=== PATIENT | female | born 1990 | race Caucasian/White ===

== ENCOUNTER 2017-07-01 10:57 | Observation (INO) | payer OTHER ==
[2017-07-01 11:30] VITALS: BP 111/57; PULSE 102
== END 2017-07-01 12:20 | disposition home or self-care (01) ==
LOC: MED SURG 10:57
PROVIDERS: ADMIT Family Medicine; ATTEND Family Medicine
DX: O09.93 Supervision of high risk pregnancy, unspecified, third trimester (principal)
CPT/HCPCS: G0378

== ENCOUNTER 2017-07-04 14:25 | Observation (INO) | payer OTHER ==
[2017-07-04 15:08] VITALS: BP 111/66; PULSE 107
[2017-07-04 15:40] LABS: Mean Cell Volume 94.2 fl (78-100); Mean Corpuscular Hemoglobin 31.3 pg (26-32); Mean Platelet Volume 9.3 fl (6-9.5); Platelet Count 194 K/mm3 (150-450); Red Blood Count 3.29 M/mm3 (4.1-5.4); Red Cell Distribution Width 13.4 % (11.5-14.0); White Blood Count 10.3 K/mm3 (4.0-10.5)
[2017-07-04 16:04] LABS: ALBUMIN 2.3 g/dL (3.4-5.0); ALKALINE PHOSPHATASE 87 U/L (46-116); ANION GAP 12.8 MEQ/L (5-15); BLOOD UREA NITROGEN 6 mg/dL (9-20); CHLORIDE 106 mEq/L (98-107); Carbon Dioxide 24.2 mEq/L (21-32); Glucose 134 MG/DL (70-110); Potassium 3.4 mEq/L (3.5-5.1); SGOT/AST 15 U/L (15-37); SGPT/ALT 12 U/L (12-78); SODIUM 140 mEq/L (136-145); Total Protein 5.8 gm/dL (6.4-8.2)
--- NOTE | 2017-07-04 16:18 | XRAY ---
Indication: High risk . 2-dimensional OB ultrasound performed. Comparison: May 30, 2017. Again there is a single viable intrauterine in breech presentation. Normal four-chamber heart with heart rate 137 bpm. Normal three-vessel cord and cord insertion. Visualized spine, stomach, kidneys, and bladder are again unremarkable. Main placenta is again posterior with again note of anterior succenturiate placenta. No abnormal retroplacental fluid collection. Cervical length measures 3.9 cm. BPD measures 8.11 cm corresponding to 32 weeks 4 days. HC measures 29.42 cm corresponding to 32 weeks 3 days. AC measures 29.51 cm corresponding to 33 weeks 3 days. FL measures 6.40 cm corresponding to 33 weeks 0 days. JOSE is 13.2 cm. Impression: Again single viable intrauterine with mean gestational age 32 weeks 6 days. Normal progression in .
[2017-07-04 17:42] LABS: Total Cells Counted 100
[2017-07-04 17:43] LABS: ANISOCYTOSIS 1+; Platelet Estimate NORMAL (NORMAL); Polychromasia 1+
== END 2017-07-04 17:50 | disposition home or self-care (01) ==
LOC: OB 14:25
PROVIDERS: ADMIT Family Medicine; ATTEND Family Medicine
DX: Z34.83 Encounter for supervision of other normal pregnancy, third trimester (principal)
CPT/HCPCS: 36415; 59025; 76805; 80053; 84550; 85025; G0378

== ENCOUNTER 2017-07-08 13:16 | Observation (INO) | payer OTHER ==
[2017-07-08 13:40] VITALS: BP 119/69; PULSE 104
== END 2017-07-08 14:32 | disposition home or self-care (01) ==
LOC: UNDOADMOB 13:16 → OB 13:16 → UNDODISOB 14:32
PROVIDERS: ADMIT Family Medicine; ATTEND Family Medicine
DX: Z34.83 Encounter for supervision of other normal pregnancy, third trimester (principal)
CPT/HCPCS: 59025; G0378

== ENCOUNTER 2017-07-11 08:51 | Observation (INO) | payer OTHER ==
[2017-07-11 09:25] VITALS: BP 113/62; PULSE 109
[2017-07-11 12:50] LABS: ALBUMIN 2.4 g/dL (3.4-5.0); ALKALINE PHOSPHATASE 100 U/L (46-116); ANION GAP 12.3 MEQ/L (5-15); BLOOD UREA NITROGEN 6 mg/dL (9-20); CHLORIDE 107 mEq/L (98-107); Carbon Dioxide 23.9 mEq/L (21-32); Glucose 95 MG/DL (70-110); Potassium 3.6 mEq/L (3.5-5.1); SGOT/AST 15 U/L (15-37); SGPT/ALT 8 U/L (12-78); SODIUM 140 mEq/L (136-145)
[2017-07-11 15:31] LABS: Mean Cell Volume 94.3 fl (78-100); Mean Corpuscular Hemoglobin 31.2 pg (26-32); Red Blood Count 3.49 M/mm3 (4.1-5.4); White Blood Count 11.5 K/mm3 (4.0-10.5)
[2017-07-11 15:32] LABS: Mean Platelet Volume 9.4 fl (6-9.5); Platelet Count 171 K/mm3 (150-450); Red Cell Distribution Width 13.7 % (11.5-14.0)
[2017-07-11 15:33] LABS: ANISOCYTOSIS 1+; Platelet Estimate NORMAL (NORMAL); Poikilocytosis 1+; Polychromasia 1+; Total Cells Counted 100
--- NOTE | 2017-07-11 16:51 | XRAY ---
Exam: OB ultrasound greater than 14 weeks from 07/11/2017. Comparison: OB ultrasound from 07/04/2017 and 02/06/2017. Indication: Preeclampsia, growth. Findings: A single live intrauterine fetus is seen in the breech lie. A normal amount amount of amniotic fluid is seen with the amniotic fluid index of 16.6 cm (normal being 7.17 cm to 27.81 cm for this stage of ). The technologist did not fully evaluate the placenta. The main placenta is noted to be high and posterior. Prior ultrasound studies had suggested the presence of a smaller anterior accessory lobe of placental tissue (succenturiate placenta). I do not see any images of this accessory lobe on the current study. The heart rate measured 145 bpm. Measurements of the head circumference, biparietal diameter, abdominal circumference, and femur length suggest a composite gestational age of 34 weeks 3 days, plus or -2 weeks 3 days. This represents normal intrauterine growth since the prior study of 07/04/2017 as well as the initial OB ultrasound study from 02/06/2017. Estimated due date by the first OB ultrasound exam of 02/06/2017 is 08/21/2017. Estimated weight is 2476 g plus or -371.45 g (5 lbs. 7 oz.+ or -13 ounces) placing the fetus in the 58.8 percentile. size ratios are within normal limits except for a slightly elevated femur length to head circumference ratio of 22.31. Images of the stomach and bladder appear unremarkable. A four-chamber heart is seen. A three-vessel umbilical cord is seen. A full survey was not performed. Impression: 1. Current size measurements suggest a gestational age of 34 weeks 3 days representing normal intrauterine growth as compared to both 07/04/2017 and 02/06/2017. The fetus is still in a breech lie. 2. A normal amount of amniotic fluid is seen with an amniotic fluid index of 16.6 cm. 3. The placenta was not fully evaluated. See above.
== END 2017-07-11 10:17 | disposition home or self-care (01) ==
LOC: OB 08:51
PROVIDERS: ADMIT Family Medicine; ATTEND Family Medicine
DX: Z34.83 Encounter for supervision of other normal pregnancy, third trimester (principal)
CPT/HCPCS: 36415; 59025; 76805; 80053; 84550; 85025; G0378

== ENCOUNTER 2017-07-15 13:14 | Observation (INO) | payer OTHER ==
[2017-07-15 13:38] VITALS: PULSE 107
[2017-07-15 14:51] VITALS: BP 103/60
== END 2017-07-15 14:35 | disposition home or self-care (01) ==
LOC: MED SURG 13:14 → UNDOADMOB 13:14
PROVIDERS: ADMIT Family Medicine; ATTEND Family Medicine
DX: Z34.83 Encounter for supervision of other normal pregnancy, third trimester (principal)
CPT/HCPCS: 59025; G0378

== ENCOUNTER 2017-07-19 08:11 | Observation (INO) | payer OTHER ==
[2017-07-19 08:42] VITALS: BP 104/64; PULSE 106
[2017-07-19 08:56] LABS: Mean Cell Volume 93.8 fl (78-100); Mean Platelet Volume 9.4 fl (6-9.5); Platelet Count 152 K/mm3 (150-450); Red Blood Count 3.57 M/mm3 (4.1-5.4); Red Cell Distribution Width 13.9 % (11.5-14.0)
[2017-07-19 09:35] LABS: ATYPICAL LYMPHS 1 %; BAND 7 % (0.0-2.0); Eosinophil 1 % (0.00-3.0); Total Cells Counted 100
[2017-07-19 09:36] LABS: ANISOCYTOSIS 1+; Platelet Estimate NORMAL (NORMAL); Polychromasia 1+
[2017-07-19 11:24] LABS: ALBUMIN 2.3 g/dL (3.4-5.0); ALKALINE PHOSPHATASE 107 U/L (46-116); ANION GAP 13.2 MEQ/L (5-15); BLOOD UREA NITROGEN 3 mg/dL (9-20); CHLORIDE 107 mEq/L (98-107); Carbon Dioxide 22.4 mEq/L (21-32); Glucose 105 MG/DL (70-110); Potassium 3.4 mEq/L (3.5-5.1); SGOT/AST 19 U/L (15-37); SGPT/ALT 14 U/L (12-78); SODIUM 139 mEq/L (136-145); Total Protein 5.9 gm/dL (6.4-8.2)
--- NOTE | 2017-07-19 11:41 | XRAY ---
Indication: Preeclampsia. 2-dimensional OB ultrasound performed. Comparison: July 11, 2017. Again there is a single viable intrauterine in breech presentation. Normal four-chamber heart with heart rate 135 beats per minute. Normal three-vessel cord and cord insertion. Visualized head, spine, stomach, kidneys, and bladder appear unremarkable. Placenta remains anterior fundal without abnormal retroplacental fluid. Cervical length measures 3.3 cm. BPD measures 8.87 cm corresponding to 35 weeks 6 days. HC measures 32.67 cm corresponding to 37 weeks 0 days. AC measures 31.41 cm corresponding to 35 weeks 2 days. FL measures 6.69 cm corresponding to 34 weeks 3 days. JOSE is 16.5 cm. Impression: Again single viable intrauterine with mean gestational age 35 weeks 5 days. Normal progression of .
== END 2017-07-19 10:15 | disposition home or self-care (01) ==
LOC: MED SURG 08:11
PROVIDERS: ADMIT Family Medicine; ATTEND Family Medicine
DX: Z34.83 Encounter for supervision of other normal pregnancy, third trimester (principal)
CPT/HCPCS: 36415; 59025; 76805; 80053; 85025; G0378

== ENCOUNTER 2017-07-22 12:48 | Observation (INO) | payer OTHER ==
[2017-07-22 14:11] VITALS: BP 107/61; PULSE 110
== END 2017-07-22 13:45 | disposition home or self-care (01) ==
LOC: OB 12:48 → UNDOADMOB 12:48 → UNDODISOB 13:45
PROVIDERS: ADMIT Family Medicine; ATTEND Family Medicine
DX: Z34.83 Encounter for supervision of other normal pregnancy, third trimester (principal)
CPT/HCPCS: 59025; G0378

== ENCOUNTER 2017-07-25 08:29 | Observation (INO) | payer OTHER ==
[2017-07-25 08:58] VITALS: BP 109/64; PULSE 100
[2017-07-25 09:15] LABS: Mean Cell Volume 93.4 fl (78-100); Mean Platelet Volume 9.3 fl (6-9.5); Platelet Count 147 K/mm3 (150-450); Red Blood Count 3.66 M/mm3 (4.1-5.4); Red Cell Distribution Width 14.1 % (11.5-14.0); White Blood Count 8.6 K/mm3 (4.0-10.5)
[2017-07-25 09:40] LABS: ALBUMIN 2.3 g/dL (3.4-5.0); ALKALINE PHOSPHATASE 119 U/L (46-116); ANION GAP 15.3 MEQ/L (5-15); BLOOD UREA NITROGEN 6 mg/dL (9-20); CHLORIDE 108 mEq/L (98-107); Carbon Dioxide 20.7 mEq/L (21-32); Glucose 115 MG/DL (70-110); Potassium 3.3 mEq/L (3.5-5.1); SGOT/AST 18 U/L (15-37); SGPT/ALT 11 U/L (12-78); SODIUM 141 mEq/L (136-145)
[2017-07-25 09:59] LABS: Mean Corpuscular Hemoglobin 30.8 pg (26-32)
[2017-07-25 10:07] LABS: Total Cells Counted 100
[2017-07-25 10:08] LABS: Platelet Estimate NORMAL (NORMAL)
--- NOTE | 2017-07-25 10:35 | XRAY ---
Indication: well-being. Two-dimensional ultrasound biophysical profile study was performed. Comparison: None There is a single viable intrauterine currently in breech presentation. heart rate 162 bpm. 4 pocket JOSE is 13.1 cm. Largest amniotic pocket measures 5.9 cm. 2 points given for breathing, movements, tone, and qualitative amniotic fluid volume. Impression: Total biophysical profile score is 8 out of 8.
== END 2017-07-25 09:57 | disposition home or self-care (01) ==
LOC: MED SURG 08:29
PROVIDERS: ADMIT Family Medicine; ATTEND Family Medicine
DX: Z34.83 Encounter for supervision of other normal pregnancy, third trimester (principal)
CPT/HCPCS: 36415; 59025; 76819; 80053; 84550; 85025; G0378

== ENCOUNTER 2017-07-26 10:28 | Observation (INO) | payer OTHER ==
[2017-07-26 11:10] LABS: Bilirubin NEGATIVE (NEGATIVE); Blood NEGATIVE Ery/ul (0-5); COMPLETE URINE MICROSCOPIC? NO; Collection Type VOID; Glucose NEGATIVE (NEGATIVE); Leukocyte Esterase NEGATIVE (NEGATIVE)
--- NOTE | 2017-07-26 11:49 | XRAY ---
Indication: Right arm numbness, tingling, and swelling. 36 weeks . Two-dimensional sonogram and color Doppler imaging of the major venous vessels of the right upper extremity was performed. Comparison: None No thrombus seen of the visualized right jugular, subclavian, axillary, brachial, radial, ulnar, and cephalic veins. Veins demonstrate normal compressibility. Venous waveforms are normal with and without augmentation. Impression: Right arm negative for venous thrombosis.
[2017-07-26 13:14] VITALS: BP 111/62; PULSE 94
== END 2017-07-26 13:15 | disposition home or self-care (01) ==
LOC: MED SURG 10:28
PROVIDERS: ADMIT Family Medicine; ATTEND Family Medicine
DX: Z34.83 Encounter for supervision of other normal pregnancy, third trimester (principal)
CPT/HCPCS: 81002; 93971; G0378

== ENCOUNTER 2017-07-29 12:29 | Observation (INO) | payer OTHER ==
[2017-07-29 13:07] VITALS: BP 106/62; PULSE 100
== END 2017-07-29 13:40 | disposition home or self-care (01) ==
LOC: OB 12:29
PROVIDERS: ADMIT Family Medicine; ATTEND Family Medicine
DX: Z34.83 Encounter for supervision of other normal pregnancy, third trimester (principal)
CPT/HCPCS: 59025; G0378

== ENCOUNTER 2017-08-01 00:01 | Inpatient (IN) | payer OTHER ==
[2017-08-02] MEDS ORDERED: Lactated Ringers 1,000 ML IV SCH (01:00)
[2017-08-02 02:07] LABS: Mean Cell Volume 91.9 fl (78-100); Mean Corpuscular Hemoglobin 30.5 pg (26-32); Mean Platelet Volume 9.9 fl (6-9.5); Platelet Count 169 K/mm3 (150-450); Red Blood Count 3.83 M/mm3 (4.1-5.4); Red Cell Distribution Width 13.8 % (11.5-14.0); White Blood Count 10.4 K/mm3 (4.0-10.5)
[2017-08-02 02:19] LABS: INR 1.07 (0.8-3.0); PROTIME 12.1 SECONDS (9.95-12.35)
[2017-08-02 02:22] LABS: PTT 25.3 SECONDS (25.3-37.0)
[2017-08-02 03:32] LABS: Bilirubin NEGATIVE (NEGATIVE); Blood NEGATIVE Ery/ul (0-5); COMPLETE URINE MICROSCOPIC? NO; Collection Type CLEAN CATCH; Glucose NEGATIVE (NEGATIVE); Leukocyte Esterase NEGATIVE (NEGATIVE)
[2017-08-02] MEDS ORDERED: BICITRA 30 ML CUP PO ONE (06:00)
[2017-08-02] MEDS ORDERED: Pepcid 20 MG VIAL IV ONE (06:00)
[2017-08-02] MEDS ORDERED: Reglan 10 MG/2 ML IV ONE (06:00)
[2017-08-02] MEDS ORDERED: KEFZOL 1 GM ONE (06:32)
[2017-08-02] MEDS ORDERED: PHENYLEPHRINE HCL IJ ONE (08:00)
[2017-08-02] MEDS ORDERED: Pitocin 10 UNITS/ML IV ONE (08:00)
[2017-08-02] MEDS ORDERED: MORPHINE SULFATE 10 MG/ML IV ONE (08:00)
[2017-08-02] MEDS ORDERED: Marcaine Mpf 0.5% Vial 30 Ml IJ ONE (08:00)
[2017-08-02] MEDS ORDERED: Zofran 4 MG/2 ML VIAL IV ONE (08:00)
[2017-08-02] MEDS ORDERED: Decadron 4 MG INJ IV ONE (08:00)
[2017-08-02] MEDS ORDERED: TORAdol 30 mg Injection IJ ONE (08:00)
[2017-08-02] MEDS ORDERED: DEMEROL 50 MG ONE (08:07)
[2017-08-02] MEDS ORDERED: Mylicon 80MG PO PRN (09:28)
[2017-08-02] MEDS ORDERED: Dulcolax 10 MG SUPP PR PRN (09:28)
[2017-08-02] MEDS ORDERED: Narcan 0.4 MG/ML IV PRN (09:28)
[2017-08-02] MEDS ORDERED: Dermoplast Spray TP PRN (09:28)
[2017-08-02] MEDS ORDERED: CORTISONE 1% CREAM TP PRN (09:28)
[2017-08-02] MEDS ORDERED: Adacel Vial IM ONE (09:28)
[2017-08-02] MEDS ORDERED: M-M-R II Vaccine With Diluent SQ ONE (09:28)
[2017-08-02] MEDS ORDERED: Anucort-HC SUPPOSITORY PR PRN (09:28)
[2017-08-02] MEDS ORDERED: TYLENOL EXTRA STRENGTH 500 MG PO PRN (09:28)
[2017-08-02] MEDS ORDERED: Phenergan 25 MG INJ IM PRN (09:28)
[2017-08-02] MEDS ORDERED: DEMEROL 75 MG IM PRN (09:28)
[2017-08-02] MEDS ORDERED: NORCO 5/325 MG PO PRN (09:28)
[2017-08-02] MEDS ORDERED: CLARITIN 10 MG PO PRN (09:28)
[2017-08-02] MEDS ORDERED: LANSINOH 40 GM TOP PRN (09:28)
[2017-08-02] MEDS ORDERED: TUCKS TP PRN (09:28)
[2017-08-02] MEDS ORDERED: Ambien 10 MG PO PRN (09:28)
--- NOTE | 2017-08-02 10:25 | OP ---
SURGERY DATE/TIME: 08/02/2017719 PREOPERATIVE DIAGNOSIS: 1) Term intrauterine . 2) Preeclampsia. 3) Breech presentation. POSTOPERATIVE DIAGNOSIS: 1) Term intrauterine . 2) Preeclampsia. 3) Breech presentation. 4) Delivered. PROCEDURE: Primary lower uterine segment transverse incision section. SURGEON: Dr. Mcarthur. ANESTHESIA: Spinal. HISTORY: The patient is a 26 year old white female who presents now for section delivery due to the baby in breech presentation at term with worsening preeclampsia. The patient was described the risks of the procedure including risk of wound infection possible bleeding requiring transfusion, possible injury to any intra-abdominal organs. The patient verbalized her understanding and desired to have the procedure performed. DESCRIPTION OF PROCEDURE: The patient was prepped and draped in the supine position. After adequate regional anesthesia was confirmed, a Pfannenstiel incision was made and carried down sharply through the fascia which was divided in a horizontal fashion. The rectus muscles were then bluntly and sharply dissected away from the overlying fascia and bluntly retracted laterally. The peritoneum was then entered. A bladder flap was developed and the bladder was retracted inferiorly. The uterus was scored in a horizontal fashion and entered in the midline. The baby was delivered through the abdominal wound. The cord was doubly clamped and divided between the clamps and the baby was handed off for further care. The placenta was then manually removed from the uterus. The uterus was exteriorized and wrapped in moist gauze. The wound edges were reapproximated using 1-0 chromic suture in a running, interlocking fashion. The bladder flap was repaired using 3-0 chromic suture in a running fashion. The peritoneum was repaired using 3-0 chromic suture in a running fashion. The fascia was repaired using 0 Vicryl suture in a running fashion. The skin edges were reapproximated using 4-0 Vicryl suture in a subcuticular fashion and reinforced with Steri-Strips. The sponge, needle and instrument count was reported as correct at the end of the procedure. The patient did receive 2 gm of Cefazolin intraoperatively after the cord was clamped. Estimated blood loss was 300 cc. The patient was taken back to the recovery room in good condition.
[2017-08-02] MEDS ORDERED: Sodium Chloride 0.9% 10 ML FLUSH Syringe IJ PRN (10:28)
[2017-08-02] MEDS ORDERED: HOLD NARCOTIC ANALGESICS AND SEDATIVES X24 HR MC PRN (10:28)
[2017-08-02] MEDS ORDERED: MORPHINE SULFATE 2 MG INJ IV PRN (10:28)
[2017-08-02] MEDS ORDERED: DEMEROL 50 MG IV PRN (10:28)
[2017-08-02] MEDS ORDERED: Zofran 4 MG/2 ML VIAL IV PRN (10:28)
[2017-08-02] MEDS: BENADRYL 50 MG/ML IV PRN (11:55)
[2017-08-02] MEDS: Nubain 10 MG/ML IV PRN ×2 (14:00→20:27)
[2017-08-02] MEDS: Dextrose 5%-Lr IV Solution 1000 ML 1,000 ML IV SCH ×2 (14:03→21:44)
[2017-08-02] MEDS: PERCOCET TABLET 5/325MG PO PRN (18:17)
[2017-08-02] MEDS: MOTRIN 400 MG PO PRN (21:40)
[2017-08-02] MEDS: Colace 100 MG PO SCH (21:41)
[2017-08-03] MEDS: PERCOCET TABLET 5/325MG PO PRN ×2 (01:27→06:58)
[2017-08-03] MEDS: Nubain 10 MG/ML IV PRN (02:36)
[2017-08-03] MEDS: MOTRIN 400 MG PO PRN ×3 (05:59→19:00)
[2017-08-03 06:20] LABS: Mean Cell Volume 93.8 fl (78-100); Mean Corpuscular Hemoglobin 30.8 pg (26-32); Mean Platelet Volume 10.2 fl (6-9.5); Platelet Count 179 K/mm3 (150-450); Red Blood Count 3.86 M/mm3 (4.1-5.4); Red Cell Distribution Width 14.1 % (11.5-14.0); White Blood Count 12.9 K/mm3 (4.0-10.5)
[2017-08-03 08:23] LABS: Eosinophil 1 % (0.00-3.0); Platelet Estimate NORMAL (NORMAL); Total Cells Counted 100
[2017-08-03] MEDS: BENADRYL 50 MG/ML IV PRN (08:44)
[2017-08-03 08:59] VITALS: O2SAT 99
[2017-08-03] MEDS ORDERED: DEMEROL 75 MG IM PRN (09:00)
[2017-08-03] MEDS ORDERED: CLARITIN 10 MG PO PRN (10:30)
[2017-08-03] MEDS: FERREX 150 PO SCH (10:33)
[2017-08-03] MEDS: Colace 100 MG PO SCH ×2 (10:33→22:04)
[2017-08-03] MEDS: NORCO 5/325 MG PO PRN ×3 (11:05→20:09)
[2017-08-04] MEDS: NORCO 5/325 MG PO PRN ×4 (00:03→14:21)
[2017-08-04] MEDS: MOTRIN 400 MG PO PRN ×3 (01:10→12:16)
[2017-08-04] MEDS: Colace 100 MG PO SCH (09:01)
[2017-08-04] MEDS: FERREX 150 PO SCH (09:02)
[2017-08-04 09:11] LABS: ALBUMIN 1.9 g/dL (3.4-5.0); ALKALINE PHOSPHATASE 108 U/L (46-116); ANION GAP 12.5 MEQ/L (5-15); BLOOD UREA NITROGEN 5 mg/dL (9-20); CHLORIDE 106 mEq/L (98-107); Carbon Dioxide 24.9 mEq/L (21-32); Glucose 78 MG/DL (70-110); Potassium 3.8 mEq/L (3.5-5.1); SGOT/AST 24 U/L (15-37); SGPT/ALT 14 U/L (12-78); SODIUM 140 mEq/L (136-145); Total Protein 5.2 gm/dL (6.4-8.2)
--- NOTE | 2017-08-04 09:47 | PCM.DS ---
Discharge Summary Date of Admission: 08/01/17 00:01 Admitting Physician: JOEL NAQVI Consults: Consults on Case 08/02/17 00:40 Notify Physician OF ADMISSION 08/02/17 09:28 Notify Anesthesia Provider PRN 08/02/17 09:31 Notify Physician ROUTINE 08/02/17 10:29 Notify Anesthesia Provider PRN Primary Care Provider: JOEL NAQVI Allergies Allergies No Known Drug Allergies Allergy (Verified 08/02/17 19:42) Hospital Summary - Hospital Course Hospital Course: pt admitted at 37+ weeks for primary , pre-eclamptic since 32 weeks with increasing sx and breech baby. Surgery went well with no real hemoglobin loss. Labs and blood pressures have remained normal. She is recovering well. Having some postoperative pain. Bleeding is decreaseing. out of bed without issues. Will be discharged home on a small amount of norco and ibuprofen for pain. F/u with me in 1 week. - Vitals & Intake/Output Vital Signs: Vital Signs Temperature 97.6 F 08/04/17 02:00 Pulse Rate 88 08/04/17 02:00 Respiratory Rate 20 08/04/17 02:00 Blood Pressure 109/65 08/04/17 02:00 O2 Sat by Pulse Oximetry 99 08/03/17 08:30 Intake & Output: Intake & Output 08/01/17 08/02/17 08/03/17 08/04/17 11:59 11:59 11:59 11:59 Intake Total 2200 1200 5031 1600 Output Total 826 505 1716 Balance 1350 1000 1981 1600 Weight 91.172 kg 91.172 kg - Lab Result Diagrams: 08/03/17 05:37 08/04/17 08:10 Lab Results-Last 24 Hrs: Lab Results-Last 24 Hours 08/04/17 Range/Units 08:10 Sodium 140 (136-145) mEq/L Potassium 3.8 (3.5-5.1) mEq/L Chloride 106 (98-107) mEq/L Carbon Dioxide 24.9 (21-32) mEq/L Anion Gap 12.5 (5-15) MEQ/L BUN 5 L (9-20) mg/dL Creatinine 0.80 (0.55-1.30) mg/dl Estimated GFR > 60 ML/MIN Glucose 78 (70-110) MG/DL Uric Acid 3.7 (2.6-6.0) mg/dL Calcium 8.1 L (8.5-10.1) mg/dL Total Bilirubin 0.10 L (0.2-1.0) mg/dL AST 24 (15-37) U/L ALT 14 (12-78) U/L Alkaline Phosphatase 108 (46-116) U/L Serum Total Protein 5.2 L (6.4-8.2) gm/dL Albumin 1.9 L (3.4-5.0) g/dL Discharge Exam General Appearance: no apparent distress Neurologic Exam: alert, oriented x 3, cooperative Skin Exam: normal color, warm, dry Respiratory Exam: normal breath sounds, No crackles/rales, No rhonchi, No wheezing Cardiovascular Exam: regular rate/rhythm, normal heart sounds, No murmur Gastrointestinal/Abdomen Exam: soft, normal bowel sounds, other (fundus firm under umbilicus), No tenderness Final Diagnosis/Problem List - Final Discharge Diagnosis/Problem (1) Postcesarean section Current Visit: Yes Status: Acute Assessment & Plan: Will send home on very small amount of norco, does have a history of substance abuse issues but doing great now. F/u in 1 week. (2) Pre-eclampsia Current Visit: Yes Status: Acute Assessment & Plan: BP have been great, checking labs this morning. Advised can have issues with preeclampsia up to 6 wks post . - Discharge Disposition: Home, Self-Care Condition: Stable Prescriptions: New Docusate Sodium 100 mg [Colace 100 MG] 100 mg PO BID PRN #60 capsule PRN Reason: Constipation Ibuprofen 800 mg PO TID PRN PRN #35 tablet PRN Reason: Pain Hydrocodone Bit/Acetaminophen [[place] 5-325 Tablet] 1 each PO BID PRN #10 tablet PRN Reason: Severe Pain Continue Vits W-Ca,Fe,FA(<1Mg) [] 1 each PO DAILY Ranitidine HCl [Zantac] 1 tab PO BID PRN PRN Reason: heartburn Follow up with: JOEL NAQVI [Primary Care Provider] - 1 Week
[2017-08-04 15:23] VITALS: BP 137/77; PULSE 96
== END 2017-08-04 16:10 | disposition home or self-care (01) | DRG 766 ==
LOC: OB 00:01
PROVIDERS: ADMIT Family Medicine; ATTEND Family Medicine
PROC: 10D00Z1 Extraction of Products of Conception, Low, Open Approach (ICD-10-PCS; principal; 2017-08-02)
DX: O32.1XX0 Maternal care for breech presentation, not applicable or unspecified (principal); O14.94 Unspecified pre-eclampsia, complicating childbirth; Z3A.38 38 weeks gestation of pregnancy; Z37.0 Single live birth
CPT/HCPCS: 01961; 36415; 59025; 62322; 64425; 76815; 76942; 80053; 80307; 81002; 84550; 85025; 85027; 85610; 85730; 90471; 90472; 90707; 90715; 94799; G0378; J0690; J1100; J1200; J1885; J2175; J2270; J2300; J2370; J2405; J2590; L0625; A9270-GY

== ENCOUNTER 2017-08-01 07:56 | Observation (INO) | payer OTHER ==
[2017-08-01 08:18] VITALS: PULSE 116
[2017-08-01 08:24] VITALS: BP 113/60
[2017-08-01 08:44] LABS: Mean Cell Volume 92.3 fl (78-100); Mean Platelet Volume 9.8 fl (6-9.5); Platelet Count 167 K/mm3 (150-450); Red Blood Count 3.63 M/mm3 (4.1-5.4); Red Cell Distribution Width 14.1 % (11.5-14.0); White Blood Count 9.4 K/mm3 (4.0-10.5)
[2017-08-01 08:52] LABS: Mean Corpuscular Hemoglobin 30.5 pg (26-32)
--- NOTE | 2017-08-01 09:13 | XRAY ---
Indication: Evaluate growth and JOSE. Limited 2-dimensional OB ultrasound performed. Comparison: July 19, 2017. Again there is a single viable intrauterine in breech presentation. Normal four-chamber heart with heart rate 146 bpm. Placenta remains anterior fundal without abnormal retroplacental fluid. BPD measures 9.41 cm corresponding to 38 weeks 2 days. HC measures 33.63 cm corresponding to 38 weeks 4 days. AC measures 34.07 cm corresponding to 38 weeks 0 days. FL measures 7.03 cm corresponding to 36 weeks 0 days. JOSE is 14.5 cm. Impression: Again single viable intrauterine with mean gestational age 37 weeks 5 days. Normal progression of and normal JOSE.
[2017-08-01 09:16] LABS: ALBUMIN 2.3 g/dL (3.4-5.0); ALKALINE PHOSPHATASE 134 U/L (46-116); ANION GAP 13.6 MEQ/L (5-15); BLOOD UREA NITROGEN 4 mg/dL (9-20); CHLORIDE 107 mEq/L (98-107); Carbon Dioxide 21.8 mEq/L (21-32); Glucose 82 MG/DL (70-110); Potassium 3.4 mEq/L (3.5-5.1); SGOT/AST 21 U/L (15-37); SGPT/ALT 12 U/L (12-78); SODIUM 139 mEq/L (136-145); Total Protein 5.7 gm/dL (6.4-8.2)
[2017-08-01 11:45] LABS: BAND 2 % (0.0-2.0); Eosinophil 1 % (0.00-3.0); Total Cells Counted 100
[2017-08-01 11:46] LABS: ANISOCYTOSIS 1+
[2017-08-01 11:47] LABS: Platelet Estimate NORMAL (NORMAL)
== END 2017-08-01 10:00 | disposition home or self-care (01) ==
LOC: OB 07:56
PROVIDERS: ADMIT Family Medicine; ATTEND Family Medicine
DX: Z34.83 Encounter for supervision of other normal pregnancy, third trimester (principal)
CPT/HCPCS: 36415; 59025; 76815; 80053; 84550; 85025; G0378